=== PATIENT | male | born 1990 | race Hispanic/Latino ===

== ENCOUNTER 2018-08-14 19:18 | Emergency (ER) | payer SELFPAY ==
--- NOTE | 2018-08-14 20:09 | RAD REPORT ---
EXAM DESCRIPTION: CT - Head Brain Wo Cont - 08/14/2018 8:03 pm CLINICAL HISTORY: Headache COMPARISON: None. TECHNIQUE: Axial 5 mm thick images of the head were obtained without IV contrast. All CT scans are performed using dose optimization technique as appropriate and may include automated exposure control or mA/KV adjustment according to patient size. FINDINGS: No intracranial hemorrhage, mass, edema or shift of mid-line structures. No acute infarcti on changes seen. No abnormal extra-axial fluid collections. Ventricles are normal. Mastoid air cells and visualized portions of the paranasal sinuses are clear. No acute bony findings. IMPRESSION: Negative non-contrast CT head examination.
[2018-08-14] MEDS ORDERED: NA CHLORIDE 0.9% 1,000 ML ONE (20:53)
[2018-08-14 21:00] LABS: Absolute Lymphocytes (CBC) 2.8 K/uL (0.7-4.9); Absolute Monocytes 0.6 K/uL (0.1-1.3); Absolute Neutrophil 3.4 K/uL (1.8-8.0); Basophils % 0.5 % (0-1.3); Eosinophils % 2.1 % (0-4.4); Hematocrit 39.6 % (39.6-49.0); Lymphocytes % 39.7 % (15.3-44.8); MCH 30.8 pg (27.0-35.0); MPV 6.8 fL (7.6-11.3); Monocytes % 8.4 % (3.3-12.3); RBC Red Blood Cell Count 4.44 M/uL (4.33-5.43)
[2018-08-14 21:05] LABS: Barbiturates NEGATIVE (NEGATIVE); Benzodiazepines NEGATIVE (NEGATIVE); Cocaine NEGATIVE (NEGATIVE); METHAMPHETAM NEGATIVE (NEGATIVE); Methadone NEGATIVE (NEGATIVE); Opiates NEGATIVE (NEGATIVE); Phencyclidine NEGATIVE (NEGATIVE); THC Cannibis NEGATIVE (NEGATIVE)
[2018-08-14 21:11] LABS: Urine Blood NEGATIVE (NEG); Urine Glucose NEGATIVE (NEG); Urine Protein NEGATIVE (NEG)
--- NOTE | 2018-08-14 21:21 | RAD REPORT ---
EXAM DESCRIPTION: RAD - Chest Single View - 08/14/2018 9:10 pm CLINICAL HISTORY: Cough and congestion, headache COMPARISON: None. TECHNIQUE: AP portable chest image was obtained 2047 hours . FINDINGS: Lungs are clear. Heart and vasculature are normal. No measurable pleural effusion and no p neumothorax. No acute bony abnormality seen. No acute aortic findings suspected. IMPRESSION: No acute cardiopulmonary process.
[2018-08-14 22:04] LABS: ALT/SGPT 49 U/L (12-78); AST/SGOT 25 U/L (15-37); Albumin 4.1 g/dL (3.4-5.0); Alkaline Phosphatase 80 U/L (45-117); BUN Blood Urea Nitrogen 17 mg/dL (7-18); Bicarbonate 30 mmol/L (21-32); Bilirubin Direct 0.1 mg/dL (0-0.2); Bilirubin Total 0.4 mg/dL (0.2-1.0); Glucose Level 97 mg/dL (74-106); Magnesium 2.3 mg/dL (1.8-2.4); NT PRO-BNP 14 pg/mL (<125); Potassium 3.6 mmol/L (3.5-5.1); Sodium Level 140 mmol/L (136-145); Troponin (Emerg Dept Use Only) < 0.02 ng/mL (0.0-0.045)
--- NOTE | 2018-08-14 22:32 | ER ---
Nurse's Notes [facility] Name: Sriram Dubon Age: 28 yrs Sex: Male : 1990 Arrival Date: 08/14/2018 Time: 19:21 Bed 17 Private MD: Diagnosis: Headache Presentation: 08/14 19:32 Presenting complaint: Patient states: headache started 1900 with blurred vision to ak1 right eye that has since resolved. Transition of care: patient was not received from another setting of care. Onset of symptoms was August 14, 2018. Risk Assessment: Do you want to hurt yourself or someone else? Patient reports no desire to harm self or others. Initial Sepsis Screen: Does the patient meet any 2 criteria? No. Patient's initial sepsis screen is negative. Does the patient have a suspected source of infection? No. Patient's initial sepsis screen is negative. Care prior to arrival: None. 19:32 Method Of Arrival: Ambulatory ak1 19:32 Acuity: JOHNATHAN 3 ak1 Triage Assessment: 19:33 Headache History: Denies prior headaches. General: Appears in no apparent distress. ak1 Behavior is anxious. Pain: Pain currently is 4 out of 10 on a pain scale. Pain began 30 min ago. Neuro: Level of Consciousness is awake, alert, obeys commands, Oriented to person, place, time, situation, Middleware Administrator are equal bilaterally Moves all extremities. Gait is steady, Speech is normal, Facial symmetry appears normal. Historical: - Allergies: 19:33 No Known Allergies; ak1 - Home Meds: 19:33 None [Active]; ak1 - PMHx: 19:33 None; ak1 - PSHx: 19:33 None; ak1 - Immunization history:: Adult Immunizations unknown. - Social history:: Smoking status: Patient/guardian denies using tobacco. - Ebola Screening: : No symptoms or risks identified at this time. - Family history:: not pertinent. Screenin:34 Abuse screen: Denies threats or abuse. Denies injuries from another. Nutritional ak1 screening: No deficits noted. Tuberculosis screening: No symptoms or risk factors identified. Fall Risk None identified. Assessment: 19:55 General: Appears in no apparent distress. uncomfortable, Behavior is calm, cooperative, jb4 appropriate for age. Pain: Complains of pain in left frontal area, left side of the back of head and left temporal area Pain does not radiate. Pain currently is 4 out of 10 on a pain scale. Neuro: Level of Consciousness is awake, alert, obeys commands, Oriented to person, place, time, situation, Middleware Administrator are equal bilaterally Moves all extremities. Full function Gait is steady, Speech is normal, Facial symmetry appears normal, Pupils are PERRLA, Numbness in left ear and left jaw Reports headache in left. Cardiovascular: Heart tones S1 S2 present Patient's skin is warm and dry. Respiratory: Airway is patent Respiratory effort is even, unlabored, Respiratory pattern is regular, symmetrical, Breath sounds are clear bilaterally. GI: No signs and/or symptoms were reported involving the gastrointestinal system. : No signs and/or symptoms were reported regarding the genitourinary system. EENT: No signs and/or symptoms were reported regarding the EENT system. Derm: Skin is intact, Skin is pink, warm \T\ dry. Musculoskeletal: Circulation, motion, and sensation intact. 21:00 Reassessment: Patient appears in no apparent distress at this time. Patient and/or jb4 family updated on plan of care and expected duration. Pain level reassessed. Patient is alert, oriented x 3, equal unlabored respirations, skin warm/dry/pink. Patient states feeling better. 22:00 Reassessment: Patient appears in no apparent distress at this time. Patient and/or jb4 family updated on plan of care and expected duration. Pain level reassessed. Patient is alert, oriented x 3, equal unlabored respirations, skin warm/dry/pink. 23:00 Reassessment: Patient appears in no apparent distress at this time. Patient and/or jb4 family updated on plan of care and expected duration. Pain level reassessed. Patient is alert, oriented x 3, equal unlabored respirations, skin warm/dry/pink. Discussed D/c,F/u, denies questions or concerns. Vital Signs: 19:33 BP 131 / 91; Pulse 77; Resp 18; Temp 97.6; Pulse Ox 98% on R/A; Weight 88.45 kg (R); ak1 Height 5 ft. 10 in. (177.80 cm) (R); Pain 4/10; 20:45 BP 128 / 87; Pulse 74; Resp 16; Pulse Ox 99% ; jb4 21:30 BP 117 / 79; Pulse 71; Resp 18; Pulse Ox 100% on R/A; jb4 22:30 BP 111 / 60; Pulse 64; Resp 16; Pulse Ox 100% on R/A; jb4 23:00 BP 113 / 88; Pulse 62; Resp 16; Pulse Ox 99% on R/A; jb4 19:33 Body Mass Index 27.98 (88.45 kg, 177.80 cm) ak1 ED Course: 19:21 Patient arrived in ED. es 19:33 Triage completed. ak1 19:33 Arm band placed on Patient placed in waiting room, Patient notified of wait time. ak1 19:34 Patient has correct armband on for positive identification. ak1 19:48 Harish Harp, BRAIN is Primary Nurse. jb4 19:55 Bed in low position. Call light in reach. Side rails up X 1. Pulse ox on. NIBP on. jb4 19:59 Ulises Kunz MD is Attending Physician. [facility] 20:[address] al 20:03 CT completed. Patient tolerated procedure well. Patient moved back from CT. al 20:04 CT Head Brain wo Cont In Process Unspecified. EDMS 21:10 XRAY Chest (1 view) In Process Unspecified. EDMS 22:30 Francisco Franklin MD is Referral Physician. [facility] 23:00 No provider procedures requiring assistance completed. IV discontinued, intact, jb4 bleeding controlled. Administered Medications: 20:53 Drug: NS 0.9% 1000 ml Route: IV; Rate: 1 bolus; Site: left antecubital; jb4 08/15 00:00 Follow up: Response: No adverse reaction; IV Status: Completed infusion 4 08/14 23:02 Drug: Aspirin Chewable Tablet 162 mg Route: PO; jb4 23:10 Follow up: Response: No adverse reaction jb4 23:02 Drug: TORadol 30 mg Route: IVP; Site: left antecubital; jb4 23:10 Follow up: Response: No adverse reaction; Pain is decreased [facility] Outcome: 22:31 Discharge ordered by . [facility] 23:00 Discharged to home ambulatory. jb4 23:00 Condition: stable 23:00 Discharge instructions given to patient, Instructed on discharge instructions, follow up and referral plans. medication usage, Demonstrated understanding of instructions, follow-up care, medications. 23:07 Patient left the ED. jb4 Signatures: Dispatcher [employer] Ulises Massey MD MD cha Salyer, Edna es Krenek, Amber RN RN ak1 Harish Harp RN RN jb4 Coleman Kothari
--- NOTE | 2018-08-14 22:32 | EDPHYS ---
Physician Documentation [facility] Name: Sriram Dubon Age: 28 yrs Sex: Male : 1990 Arrival Date: 08/14/2018 Time: 19:21 Bed 17 Private MD: ED Physician Ulises Kunz HPI: 08/14 22:27 This 28 yrs old Male presents to ER via Ambulatory with complaints of morris Headache, FEEL FUNNY. 22:27 The patient complains of pain to the forehead and left frontal area. The patient morris describes the headache as aching. Onset: The symptoms/episode began/occurred just prior to arrival, today. Associated signs and symptoms: Pertinent positives: blurred vision, visual field changes. Severity of symptoms: At its worst the pain was mild, moderate, in the emergency department the pain has improved, moderately. Headache History: The patient has had previous headaches and this one is similar to previous episodes. The symptoms are alleviated by nothing. the symptoms are aggravated by nothing. The patient has not experienced similar symptoms in the past. Historical: - Allergies: 19:33 No Known Allergies; ak1 - Home Meds: 19:33 None [Active]; ak1 - PMHx: 19:33 None; ak1 - PSHx: 19:33 None; ak1 - Immunization history:: Adult Immunizations unknown. - Social history:: Smoking status: Patient/guardian denies using tobacco. - Ebola Screening: : No symptoms or risks identified at this time. - Family history:: not pertinent. ROS: 22:27 Constitutional: Negative for fever, chills, and weight loss, ENT: Negative for injury, morris pain, and discharge, Neck: Negative for injury, pain, and swelling, Cardiovascular: Negative for chest pain, palpitations, and edema, Respiratory: Negative for shortness of breath, cough, wheezing, and pleuritic chest pain, Abdomen/GI: Negative for abdominal pain, nausea, vomiting, diarrhea, and constipation, Back: Negative for injury and pain, : Negative for injury, bleeding, discharge, and swelling, MS/Extremity: Negative for injury and deformity, Skin: Negative for injury, rash, and discoloration, Psych: Negative for depression, anxiety, suicide ideation, homicidal ideation, and hallucinations, Allergy/Immunology: Negative for hives, rash, and allergies, Endocrine: Negative for neck swelling, polydipsia, polyuria, polyphagia, and marked weight changes, Hematologic/Lymphatic: Negative for swollen nodes, abnormal bleeding, and unusual bruising. 22:27 Eyes: Positive for blurry vision, of the outer aspect of conjuctiva of right eye, iris of right eye, inner aspect of conjuctiva of right eye, outer aspect of conjuctiva of left eye, iris of left eye and inner aspect of conjunctiva of left eye. 22:27 Neuro: Positive for headache. Exam: 22:27 Constitutional: This is a well developed, well nourished patient who is awake, alert, morris and in no acute distress. Head/Face: Normocephalic, atraumatic. Eyes: Pupils equal round and reactive to light, extra-ocular motions intact. Lids and lashes normal. Conjunctiva and sclera are non-icteric and not injected. Cornea within normal limits. Periorbital areas with no swelling, redness, or edema. ENT: Nares patent. No nasal discharge, no septal abnormalities noted. Tympanic membranes are normal and external auditory canals are clear. Oropharynx with no redness, swelling, or masses, exudates, or evidence of obstruction, uvula midline. Mucous membranes moist. Neck: Trachea midline, no thyromegaly or masses palpated, and no cervical lymphadenopathy. Supple, full range of motion without nuchal rigidity, or vertebral point tenderness. No Meningismus. Chest/axilla: Normal chest wall appearance and motion. Nontender with no deformity. No lesions are appreciated. Cardiovascular: Regular rate and rhythm with a normal S1 and S2. No gallops, murmurs, or rubs. Normal PMI, no JVD. No pulse deficits. Respiratory: Lungs have equal breath sounds bilaterally, clear to auscultation and percussion. No rales, rhonchi or wheezes noted. No increased work of breathing, no retractions or nasal flaring. Abdomen/GI: Soft, non-tender, with normal bowel sounds. No distension or tympany. No guarding or rebound. No evidence of tenderness throughout. Back: No spinal tenderness. No costovertebral tenderness. Full range of motion. Male : Normal genitalia with no discharge or lesions. Skin: Warm, dry with normal turgor. Normal color with no rashes, no lesions, and no evidence of cellulitis. MS/ Extremity: Pulses equal, no cyanosis. Neurovascular intact. Full, normal range of motion. Neuro: Awake and alert, GCS 15, oriented to person, place, time, and situation. Cranial nerves II-XII grossly intact. Motor strength 5/5 in all extremities. Sensory grossly intact. Cerebellar exam normal. Normal gait. Psych: Awake, alert, with orientation to person, place and time. Behavior, mood, and affect are within normal limits. Vital Signs: 19:33 BP 131 / 91; Pulse 77; Resp 18; Temp 97.6; Pulse Ox 98% on R/A; Weight 88.45 kg (R); ak1 Height 5 ft. 10 in. (177.80 cm) (R); Pain 4/10; 20:45 BP 128 / 87; Pulse 74; Resp 16; Pulse Ox 99% ; jb4 21:30 BP 117 / 79; Pulse 71; Resp 18; Pulse Ox 100% on R/A; jb4 22:30 BP 111 / 60; Pulse 64; Resp 16; Pulse Ox 100% on R/A; jb4 23:00 BP 113 / 88; Pulse 62; Resp 16; Pulse Ox 99% on R/A; jb4 19:33 Body Mass Index 27.98 (88.45 kg, 177.80 cm) [facility] MDM: 19:59 Patient medically screened. [facility] 22:27 Data reviewed: vital signs, nurses notes, lab test result(s), EKG, radiologic studies, [facility] CT scan, plain films. 08/14 20:19 Order name: Basic Metabolic Panel [facility] 08/14 20:19 Order name: CBC with Diff; Complete Time: 22:26 [facility] 08/14 20:19 Order name: LFT's; Complete Time: 22:26 [facility] 08/14 20:19 Order name: Magnesium; Complete Time: 22:26 [facility] 08/14 20:19 Order name: NT PRO-BNP; Complete Time: 22:26 [facility] 08/14 20:19 Order name: Troponin (emerg Dept Use Only); Complete Time: 22:26 [facility] 08/14 19:35 Order name: CT Head Brain wo Cont; Complete Time: 20:18 ak 08/14 20:19 Order name: XRAY Chest (1 view); Complete Time: 22:26 [facility] 08/14 20:19 Order name: Acetaminophen; Complete Time: 22:26 [facility] 08/14 20:19 Order name: ETOH Level; Complete Time: 22:26 [facility] 08/14 20:19 Order name: Salicylate; Complete Time: 22:26 [facility] 08/14 20:19 Order name: Urine Drug Screen; Complete Time: 22:26 [facility] 08/14 20:20 Order name: Basic Metabolic Panel; Complete Time: 22:26 EDMS 08/14 20:50 Order name: Urine Dipstick--Ancillary (enter results); Complete Time: 22:26 [facility] 08/14 20:19 Order name: EKG; Complete Time: 20:20 [facility] 08/14 20:19 Order name: Cardiac monitoring; Complete Time: 20:45 [facility] 08/14 20:19 Order name: EKG - Nurse/Tech; Complete Time: 20:45 [facility] 08/14 20:19 Order name: IV Saline Lock; Complete Time: 20:45 [facility] 08/14 20:19 Order name: Labs collected and sent; Complete Time: 20:45 [facility] 08/14 20:19 Order name: O2 Per Protocol; Complete Time: 20:33 [facility] 08/14 20:19 Order name: O2 Sat Monitoring; Complete Time: 20:32 [facility] 08/14 20:19 Order name: Urine Dipstick-Ancillary (obtain specimen); Complete Time: 20:45 [facility] Administered Medications: 20:53 Drug: NS 0.9% 1000 ml Route: IV; Rate: 1 bolus; Site: left antecubital; 4 08/15 00:00 Follow up: Response: No adverse reaction; IV Status: Completed infusion [facility] 08/14 23:02 Drug: Aspirin Chewable Tablet 162 mg Route: PO; 4 23:10 Follow up: Response: No adverse reaction [facility] 23:02 Drug: TORadol 30 mg Route: IVP; Site: left antecubital; jb4 23:10 Follow up: Response: No adverse reaction; Pain is decreased 4 Disposition: 08/14/18 22:31 Discharged to Home. Impression: Headache. - Condition is Stable. - Discharge Instructions: General Headache Without Cause, Aspirin and Your Heart, General Headache Without Cause, [id number]. - Prescriptions for Fioricet with Codeine 50- 325-40-30 mg Oral capsule - take 1 capsule by ORAL route every 4 hours as needed not to exceed 6 capsules per 24hrs; 20 capsule. - Medication Reconciliation Form, Thank You Letter, Antibiotic Education, Prescription Opioid Use form. - Follow up: Private Physician; When: 2 - 3 days; Reason: Recheck today's complaints, Continuance of care, Re-evaluation by your physician. Follow up: Francisco Franklin MD; When: 2 - 3 days; Reason: Recheck today's complaints, Continuance of care, Re-evaluation by your physician. - Problem is new. - Symptoms have improved. Signatures: Dispatcher [employer] EDUT Ulises Kunz MD MD cha Krenek, Amber, RN RN ak1 Harish Harp RN RN jb4 Corrections: (The following items were deleted from the chart) 23:07 22:31 08/14/2018 22:31 Discharged to Home. Impression: Headache. Condition is Stable. jb4 Forms are Medication Reconciliation Form, Thank You Letter, Antibiotic Education, Prescription Opioid Use. Follow up: Private Physician; When: 2 - 3 days; Reason: Recheck today's complaints, Continuance of care, Re-evaluation by your physician. Follow up: Francisco Franklin; When: 2 - 3 days; Reason: Recheck today's complaints, Continuance of care, Re-evaluation by your physician. Problem is new. Symptoms have improved. morris
[2018-08-14] MEDS ORDERED: ASPIRIN 81 MG CHEWABLE TABLET ONE (23:04)
[2018-08-14] MEDS ORDERED: KETOROLAC 30 MG/ML INJ ONE (23:05)
--- NOTE | 2018-08-16 17:37 | EKG ---
Test Date: 2018-08-14 Test Time: 20:41:35 Scrum Master: SERGIO MEASUREMENT RESULTS: Intervals: Rate: 67 MI: 192 QRSD: 98 QT: 394 QTc: 416 [place]: P: 9 MI: 192 QRS: 82 T: 58 INTERPRETIVE STATEMENTS: Normal sinus rhythm Normal ECG No previous ECG available for comparison Electronically Signed On 08-16-18 17:33:57 CDT by Tay Finley
== END 2018-08-14 23:07 | disposition home or self-care (01) ==
LOC: ER 19:18
DX: R51 Headache (principal)
CPT/HCPCS: 36415; 70450; 71045; 80048; 80076; 80307; 80320; 80329; 81003; 83735; 83880; 84484; 85025; 93005; 96361; 96374; 99284; J7030